=== PATIENT | female | born 1990 | race African-American/Black ===

== ENCOUNTER 2021-09-16 14:08 | Emergency (ER) | payer OTHER ==
[~2021-09-16] VITALS: Ht 157.5 cm; Wt 63.5 kg
[2021-09-16] MEDS: ALBUTEROL FS 2.5 MG/3 ML VIAL.NEB NEB ONE ×2 (15:00→17:13)
[2021-09-16] MEDS: IPRATROPIUM NEB FS 0.5 MG/2.5 ML AMPUL.NEB NEB ONE ×2 (15:00→17:13)
[2021-09-16] MEDS ORDERED: ALBU18HF2 INH (15:02)
[2021-09-16] MEDS ORDERED: PRED50TA PO (15:02)
[2021-09-16] MEDS ORDERED: LORA10TA7 PO (15:02)
[2021-09-16] MEDS ORDERED: FLUT10.62 INH (15:02)
--- NOTE | 2021-09-16 15:07 | NUR ---
SOB SINCE LAST NIGHT, HX OF ASTHMA. PT AAOX4, VSS. DENIES CP, DIZZINESS, N/V AT THIS TIME. PT SEEN & EVAL'D BY DR. HEMPHILL. WILL CONT TO MONITOR.
[2021-09-16] MEDS ORDERED: predniSONE 20 MG TABLET ONE (15:31)
[2021-09-16] MEDS: predniSONE 20 MG TABLET PO ONE (15:33)
[2021-09-16] MEDS ORDERED: IPRATROPIUM NEB FS 0.5 MG/2.5 ML AMPUL.NEB ONE ×2 (16:08→17:10)
[2021-09-16] MEDS ORDERED: ALBUTEROL FS 2.5 MG/0.5 ML VIAL.NEB ONE ×2 (16:08→17:10)
--- NOTE | 2021-09-16 16:15 | NUR ---
PT GETTING BREATHING TX. RT AT BS. PT CHUCK WELL.
[2021-09-16 18:33] VITALS: BP 123/78
--- NOTE | 2021-09-16 18:33 | NUR ---
Patient discharged to home in stable condition. Written and verbal after care instructions given. Patient verbalizes understanding of instruction.
== END 2021-09-16 18:34 | disposition home or self-care (01) ==
LOC: ER 14:24
DX: J45.901 Unspecified asthma with (acute) exacerbation (principal); Z20.822 Contact with and (suspected) exposure to COVID-19; F41.9 Anxiety disorder, unspecified
CPT/HCPCS: 99284; 87426; 94640; J7512; C9803